=== PATIENT | female | born 1965 | race American Indian/Alaskan Native ===

== ENCOUNTER 2016-11-30 11:42 | Emergency (ER) | payer SELFPAY ==
[2016-11-30 11:55] VITALS: BP 126/85
[2016-11-30] MEDS ORDERED: ZOFRAN ODT PO ONE (12:18)
--- NOTE | 2016-11-30 12:22 | Emergency Department Report ---
Chief Complaint: Abdominal Pain Stated Complaint: N/V X 2 DAYS Time Seen by Provider: 11/30/16 12:16 - HPI History of Present Illness: Patient reports abdominal pain, N/V/D that started two days ago. - ROS Review of Systems: all other systems are unremarkable except for documentation in HPI - Exam Vital Signs: Vital Signs 11/30/16 11:52 Temperature 100.0 F H Pulse Rate 57 L Respiratory 18 Rate Blood Pressure 126/85 O2 Sat by Pulse 100 Oximetry Physical Exam: Gen: well developed and nourished, NAD, uncomfortable Abd: soft, bowel sounds present, nondistended, diffuse tenderness, no rebound, guarding or rigid MSE screening note: Focused history and physical exam performed. Due to findings the following was ordered: antiemetic and laboratory studies ordered ED Disposition for MSE Condition: Stable Instructions: Abdominal Pain (ED)
[2016-11-30 13:22] LABS: Hemoglobin 12.6 gm/dl (10.1-14.3); Mean Corpuscular HGB Conc 32 % (30-34); Mean Corpuscular Hemoglobin 29 pg (28-32); Mean Corpuscular Volume 91 fl (79-97); Platelet Count 208 K/mm3 (140-440); Red Blood Count 4.37 M/mm3 (3.65-5.03); White Blood Count 6.1 K/mm3 (4.5-11.0)
[2016-11-30 13:23] LABS: Alanine Aminotransferase 19 units/L (7-56); Albumin 4.3 g/dL (3.9-5); Albumin/Globulin Ratio 1.1 %; Alkaline Phosphatase 83 units/L (35-129); Anion Gap 22 mmol/L; BUN/Creatinine Ratio 21.66; Bilirubin,Total 0.2 mg/dL (0.1-1.2); Blood Urea Nitrogen 13 mg/dL (7-17); Calcium 9.3 mg/dL (8.4-10.2); Carbon Dioxide 21 mmol/L (22-30); Chloride 94.7 mmol/L (98-107); Glucose 112 mg/dL (65-100); Lipase 19 units/L (13-60); Sodium 133 mmol/L (137-145); Total Protein 8.2 g/dL (6.3-8.2)
[2016-11-30 13:25] LABS: Potassium 4.7 mmol/L (3.6-5.0)
[2016-11-30 15:33] LABS: Bacteria,Urine 1+ /HPF (Negative); Bilirubin,Urine NEG (Negative); Blood,Urine NEG (Negative); Ketones,Urine 20 mg/dL (Negative); Leukocyte Esterase,Urine NEG (Negative); Mucus,Urine 3+ /HPF; Nitrite,Urine NEG (Negative)
--- NOTE | 2016-12-02 19:19 | ED Elopement Review ---
ED Pt Elopement review - Results review Lab results: Laboratory Tests 11/30/16 11/30/16 11/30/16 12:52 12:52 15:11 WBC 6.1 RBC 4.37 Hgb 12.6 Hct 40.0 MCV 91 MCH 29 MCHC 32 RDW 14.0 Plt Count 208 Lymph % (Auto) [place] % (Auto) [place] Eos % (Auto) [place] Baso % (Auto) [place] Lymph # [place] # [place] Eos # [place] Baso # [place] Seg Neutrophils % [place] Seg Neutrophils # [place] Sodium 133 L Potassium 4.7 Chloride 94.7 L Carbon Dioxide 21 L Anion Gap 22 BUN 13 Creatinine 0.6 L Estimated GFR > 60 BUN/Creatinine Ratio 21.66 Glucose 112 H Calcium 9.3 Total Bilirubin 0.2 AST 30 ALT 19 Alkaline Phosphatase 83 Total Protein 8.2 Albumin 4.3 Albumin/Globulin Ratio 1.1 Lipase 19 Urine Color Yellow Urine Turbidity Clear Urine pH 6.0 Ur Specific [place] 1.030 Urine Protein 100 mg/dl Urine Glucose (UA) Neg Urine Ketones 20 Urine Blood Neg Urine Nitrite Neg Urine Bilirubin Neg Urine Urobilinogen 2.0 Ur Leukocyte Esterase Neg Urine WBC (Auto) 3.0 Urine RBC (Auto) 15.0 U Epithel Cells (Auto) 8.0 Urine Bacteria (Auto) 1+ Urine Mucus 3+ - Call Back decision Pt Call Back Decision: No action required
== END 2016-11-30 21:20 | disposition left against medical advice (07) ==
LOC: ED 11:42
DX: R10.9 Unspecified abdominal pain (principal); R11.2 Nausea with vomiting, unspecified; R19.7 Diarrhea, unspecified; Z53.21 Procedure and treatment not carried out due to patient leaving prior to being seen by health care provider
CPT/HCPCS: 36415; 80053; 81001; 83690; 85025; Q0162